=== PATIENT | male | born 1955 | race Two or more races ===

== ENCOUNTER 2016-08-20 13:05 | Day surgery (SDC) | payer OTHER ==
[~2016-08-20] VITALS: Ht 170.2 cm; Wt 70.3 kg
[2016-08-20 14:04] VITALS: Ht 170.2 cm; Wt 70.3 kg
[2016-08-20] MEDS ORDERED: LORA10TA3 PO (14:11)
[2016-08-20] MEDS ORDERED: ALPR0.5T PO (14:11)
[2016-08-20 14:32] VITALS: BP 109/65; PULSE 77
[2016-08-20] MEDS ORDERED: PROPOFOL 20 ML ONE (14:43)
[2016-08-20 15:40] VITALS: BP 95/58; PULSE 68
--- NOTE | 2016-08-20 16:49 | GILP ---
DATE OF PROCEDURE: 08/20/2016 PROCEDURE: Colonoscopy to cecum. BRIEF HISTORY AND INDICATIONS: The patient is being evaluated for colorectal cancer screening. PREMEDICATION: Monitored anesthesia care by anesthesiologist. SURGEON: Dominick Cordova MD INSTRUMENT USED: Olympus panendoscope. PREPARATION: Adequate. TECHNIQUE: After informed consent, with the patient/relatives understanding the procedure, its indic ations potential risks and complications, including but not limited to: allergic reaction, bleeding, perforation, infection, missed lesions and after all pertinent questions were answered to the patie nt's satisfaction; the patient/relatives signed the witnessed informed consent. Following this, premedication was administered slowly IV push by under careful cardiovascular and re spiratory monitoring with pulse oximetry, automatic blood pressure and internal affairs investigator. Once the sedativ e effect was achieved, the patient was placed in the left lateral decubitus position, digital rectal examination was performed. The colonoscope was then introduced and advanced under visual control th roughout all segments of the colon including: the rectum, sigmoid, descending colon, splenic flexure , transverse colon, hepatic flexure, ascending colon and finally reaching the cecum which was clearl y identified by transillumination, finger indentation and the ileocecal valve. Careful examination o f the mucosa of the lower gastrointestinal tract both on insertion as well as withdrawal of the inst rument disclosed the following findings: Rectal Examination: No evidence of perirectal disease, no masses. Colonic Mucosa: The colonic mucosa essentially unremarkable throughout. The ileocecal valve was cl early identified and appears unremarkable. The instrument was withdrawn, reexamining the mucosa det ail. No additional abnormalities are noted with exception of moderate size internal hemorrhoids. T he patient tolerated the procedure well and was transferred out of the [facility]oscopy Suite awake and in good condition to continue recovery under observation. IMPRESSION: 1. Normal colonic mucosa to cecum. 2. Moderate size internal hemorrhoids. 3. Previous history of colon polyps and family history of colon cancer. PLAN: Annual Hemoccult stool testing and surveillance colonoscopy in 5 years and high fiber diet i s recommended. Dictated By: DOMINICK CORDOVA MS/JENNIFER Conf#: [id number] DID#: [id number] CC: DOMINICK CORDOVA;*EndCC*
== END 2016-08-20 16:39 | disposition home or self-care (01) ==
LOC: GIL 13:05
PROVIDERS: ATTEND Internal Medicine Gastroenterology
DX: Z12.11 Encounter for screening for malignant neoplasm of colon (principal); K64.8 Other hemorrhoids
CPT/HCPCS: 45378; Z7610